=== PATIENT | male | born 1950 | race Caucasian/White ===

== ENCOUNTER 2017-08-13 15:37 | Emergency (ER) | payer MEDICARE, OTHER ==
[~2017-08-13] VITALS: Ht 172.7 cm; Wt 79.0 kg
[~2017-08-13 15:37] MED LIST: CARDIZEM CD180 M1 PO; GLIPIZIDE XL5 M1 PO; GLUCOPHAGE500 M3 PO; LIPITOR40 M1 PO; NORCO 5-325 TA1 EACH PO; OMEPRAZOLE20 M4 PO; PRINIVIL20 M1 PO; VALTREX500 M1 PO
== END 2017-08-13 18:15 ==
LOC: EDMED 15:37
DX: N50.1 Vascular disorders of male genital organs (principal); D18.01 Hemangioma of skin and subcutaneous tissue; E11.9 Type 2 diabetes mellitus without complications; I10 Essential (primary) hypertension; E78.5 Hyperlipidemia, unspecified; Z79.84 Long term (current) use of oral hypoglycemic drugs; Z79.82 Long term (current) use of aspirin; Z79.899 Other long term (current) drug therapy